=== PATIENT | female | born 1995 | race Caucasian/White ===

== ENCOUNTER → 2019-01-13 | Outpatient (CLI) | payer BC ==
--- NOTE | 2019-01-13 10:12 | RAD ---
EXAM DESCRIPTION: Ankle,Left 3 Views CLINICAL HISTORY: 23 years, Female, PAIN IN LEFT ANKLE AND JOINTS OF LEFT FOOT COMPARISON: None. TECHNIQUE: AP/lateral/oblique of the Right or left ankle FINDINGS: Intact medial and lateral malleolus. There is mild soft tissue swelling laterally. Intact proximal metatarsals. Intact dome of the talus. Lateral view shows no evidence of fracture of the body of the talus or calcaneus. No calcaneal spurring is seen. No ankle joint narrowing, spurring or effusion. IMPRESSION: Negative for fracture or dislocation. Electronically signed by: Sebas Stark MD 01/13/2019 10:09 AM [facility]
== END ==
LOC: RAD 10:00
PROVIDERS: ATTEND Orthopaedic Surgery
DX: M25.572 Pain in left ankle and joints of left foot (principal)